=== PATIENT | male | born 1965 | race Caucasian/White ===

== ENCOUNTER → 2022-04-15 | Outpatient (CLI) | payer SELFPAY ==
--- NOTE | 2022-04-15 13:01 | CT_ITS ---
STUDY: CT BILATERAL HIPS T PELVIS REASON FOR EXAM: Male, 57 years old. Templating for right TALIB RADIATION DOSAGE (If Supplied By Facility): CTDIvol = ( 12.28 ) mGy, DLP = ( 829.74 ) mGycm TECHNIQUE: Transaxial imaging of the pelvis and bilateral hips was performed without oral contrast, and without intravenous administration of contrast material utilizing joint replacement protocol including localizing images at the knee . Individualized dose optimization techniques were used for this CT. COMPARISON: X-ray January 24, 2022 FINDINGS: RIGHT HIP There is severe loss of the articular joint space of the right hip joint, with full thickness loss of the hyaline cartilage. There is lateral osteoarthritic spurring of the right acetabular rim. 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 Normal right femoral neck and intertrochanteric region. LEFT HIP There is left hip replacement. Alignment is near-anatomic . OSSEOUS PELVIS Normal bilateral superior and inferior pubic rami. Normal pubic symphysis. Normal bilateral ischial tuberosity. Normal visualized iliac wing, sacroiliac joint, and sacral ala. Normal visualized soft tissue structures of the pelvis. CT/Extremity Lower without Contra IMPRESSION: Degenerative change of the right hip with avascular necrosis and flattening of the articular surface of the femoral head. Electronically Signed: Everett Robles MD at 15:41 EST ,
== END | disposition home or self-care (01) ==
PROVIDERS: PCP Family Medicine Geriatric Medicine; Referring Provider Orthopaedic Surgery; Visit Provider Orthopaedic Surgery
DX: Z96.643 Presence of artificial hip joint, bilateral (principal); M87.051 Idiopathic aseptic necrosis of right femur; M16.11 Unilateral primary osteoarthritis, right hip
CPT/HCPCS: 73700

== ENCOUNTER → 2022-04-19 | Outpatient (CLI) | payer BC, SELFPAY | END | disposition home or self-care (01) | LOC: LAB 16:38 | PROVIDERS: PCP Family Medicine Geriatric Medicine; Visit Provider Orthopaedic Surgery | DX: Z01.818 Encounter for other preprocedural examination (principal) | CPT/HCPCS: 87081 ==

== ENCOUNTER 2022-04-26 05:28 | Day surgery (SDC) | payer BC, SELFPAY ==
--- NOTE | 2022-04-13 15:46 | EKG12_ITS ---
Test Reason : PREOP Blood Pressure : / mmHG Vent. Rate : 088 BPM Atrial Rate : 088 BPM P-R Int : 134 ms QRS Dur : 084 ms QT Int : 360 ms P-R-T Axes : 022 016 041 degrees QTc Int : 435 ms Normal sinus rhythm Normal ECG Confirmed by DARION PEREZ, WAGNER ([id number]), web editor NIKIA KIM ([id number]) on 04/14/2022 11:23:00 AM Referred By: ELLIOTT Confirmed By:WAGNER ORLANDO MD
[2022-04-13 16:07] LABS: Absolute Lymphocyte Count 1.35 X10^3/uL (0.83-4.51); Absolute Neutrophil Count 3.4 X10^3/uL (2.0-7.7); Basophil# 0.04 X10^3/uL; Basophil% 0.7 % (0-1); Eosinophil# 0.09 X10^3/uL; Eosinophils% 1.6 % (0-5); Hemoglobin 14.2 g/dL (13.0-16.5); Lymphocyte # 1.35 X10^3/ul (0.83-4.51); Lymphocyte % 24.7 % (19-41); Mean Corp Hgb Conc 33.8 g/dL (32-36); Mean Corpuscular Hgb 32.8 pg (27.0-32.0); Mean Platelet Vol. 8.9 fl (6.2-12.0); Monocyte# 0.57 X10^3/uL; Monocyte% 10.4 % (0-10); NRBC Flagged by Analyzer 0 % (0-5); Neutrophil % 62.2 % (47-70); Platelet Count 310 K/mm3 (150-450); RBC Distribution Width CV 12.3 % (11.6-14.6); RBC Distribution Width SD 43.8 fl (35.1-43.9); Red Blood Count 4.33 M/mm3 (4.6-6.2); White Blood Count 5.5 K/mm3 (4.4-11.0)
[2022-04-13 16:26] LABS: Magnesium 2.2 mg/dL (1.6-2.6)
[2022-04-13 16:32] LABS: International Normalized Ratio 1.1; Prothrombin Time (Protime)PT. 13.9 SECONDS (11.7-14.9)
[2022-04-13 16:33] LABS: Partial Thromboplast Time 29.4 Seconds (24.1-36.2)
[2022-04-13 17:55] LABS: Hemoglobin A1c 5.9 % (3.8-5.6)
[2022-04-13 18:43] LABS: Anion Gap 5 (5-15); BUN 20 mg/dL (7-18); BUN/Creat Ratio 21.4 RATIO (10-20); Calcium,Total 9.5 mg/dL (8.5-10.1); Chloride 104 mmol/L (98-107); Creatinine, Serum 0.93 mg/dL (0.70-1.30); EST Glomerular Filtration Rate 88 mL/min (>60); Est Glom Filt Rate - Afr Amer 107 mL/min (>60); Glucose 102 mg/dL (74-106); Potassium 3.7 mmol/L (3.5-5.1); Sodium Level 139 mmol/L (136-145)
[2022-04-15 15:53] LABS: Fructosamine 255 umol/L (0-285)
[2022-04-26] VITALS (12 sets, daily range): BP systolic 111–145; BP diastolic 64–93; PULSE 70–88; RESP 14–20; TEMP 36.1–37.1; O2SAT 95–100; BMI 36.9
[2022-04-26] MEDS: Magnesium 1 GM over 15 mins IV (06:05)
[2022-04-26] MEDS: Lactated Ringers 1,000 ML 999 ML IV (06:05)
[2022-04-26] MEDS: Acetaminophen 500 MG Tablet 1000 MG PO ×2 (06:24→14:00)
[2022-04-26] MEDS: Celecoxib 200 MG Capsule 400 MG PO (06:24)
[2022-04-26] MEDS: Gabapentin 600 MG Tablet PO (06:25)
[2022-04-26] MEDS: Scopolamine 1mg/72hr Patch 1 PATCH TD (06:25)
[2022-04-26 06:50] LABS: Bedside Glucose 117 mg/dL (74-106)
--- NOTE | 2022-04-26 07:20 | PCM.HP.BLA ---
History and Physical Date of Admission: 04/26/22 [facility] [id number] [place] [address] OFFICE VISIT Date of Service:? 04/13/22 MR#: [id number] Acct: [id number] Name:KENA CALI Rep #: [id number] : 1965 ? ? Provider: Dr. Brandan Camacho DO Age/Sex:? 57/M ? ? Location: [facility] [place].[facility] Status: Signed Intake Intake Visit Reasons:?right hip Is patient in pain?: Yes Allergies No Known Allergies Allergy (Verified 04/13/22 14:32) Medications coenzyme Q10 75 mg capsule (Ultra CoQ10) 75 mg PO DAILY 01/24/22 [History Confirmed 04/13/22] etodolac 500 mg tablet 500 mg PO BID 01/24/22 [History Confirmed 04/13/22] ginkgo biloba 40 mg tablet 40 mg PO DAILY 01/24/22 [History Confirmed 04/13/22] glucosamine HCl 500 mg tablet 500 mg PO DAILY 01/24/22 [History Confirmed 04/13/22] hydrochlorothiazide 25 mg tablet 25 mg PO DAILY 01/24/22 [History Confirmed 04/13/22] lisinopril 40 mg tablet 40 mg PO DAILY 01/24/22 [History Confirmed 04/13/22] multivitamin 1 tab PO DAILY 01/24/22 [History Confirmed 04/13/22] omega-3 fatty acids-fish oil 300 mg-500 mg capsule (Fish Oil) 1 cap PO DAILY 01/24/22 [History Confirmed 04/13/22] omeprazole 10 mg capsule,delayed release 10 mg PO DAILY 01/24/22 [History Confirmed 04/13/22] acetaminophen 500 mg tablet 500 mg PO BID 04/12/22 [History Confirmed 04/13/22] PFSH Medical History?(Updated 04/13/22 @ 15:[address] Brandan Camacho DO) Alcohol use Arthritis Former smoker Gastric reflux History of edema History of pain when walking HTN (hypertension) Injury of head and neck Leg cramps Loss of hearing Marijuana use Wears glasses Surgical History?(Updated 04/12/22 @ 09:28 by Deonna Ribera) H/O carpal tunnel repair H/O total hip arthroplasty Hx of toe surgery Hx of tooth extraction Family History?(Updated 06/23/20 @ 11:59 by Lisa Charles QUALITY ASSURANCE SUPERVISOR, QUALITY ASSURANCE SUPERVISOR-C) Mother Diabetes HypertensionFather Lewy body dementia Dementia Social History?(Updated 01/24/22 @ 08:43 by Josselin Botello) household members:? spouse Smoking Status:? Former smoker alcohol intake:? current HPI right hip Details: Parts of this documentation were recorded by a scribe, this documentation accurately reflects the service provided and the decisions made by me, Dr. Brandan Camacho, DO 04/12/22 1145. KENA MAO is a 57 year old M here today for his preop appointment for his right hip. Patient states that he continues to have right hip pain and notes that his pain is worsening. Patient has increased pain with weather and ernst changes. He complains of pain into his groin. He has the exact same pain as his other hip was prior to surgery. Patient is taking tylenol for pain and etodolac. Ortho Exam General General: Yes no acute distress Neurologic: Yes alert and Yes oriented x3 Psychologic: Yes reasonable and appropriate Right Hip Skin: Yes CDI, No Ecchymosis, No soft tissue swelling and No Erythema Special Tests: No TTP Greater Troch and No Illiotibial band tenderness HIP: no significant edema. normal pulse.? 15 IR, 40 ER. good foot range of motion and strength Decreased hip range of motion with pain Coding Level of Care Code Off vis,est,level 3 Diagnoses Degenerative joint disease of right hip? M16.11 AVN of femur? M87.059 Assessment and Plan Assessment and Plan (1) Degenerative joint disease of right hip: ?Status:?Acute (2) AVN of femur: ?Status:?Acute Plan Spoke with the patient about the surgery procedure. He will be put on a blood thinner for 3 weeks post op. He will wear compression stockings post op until his swelling decreases. Spoke with him about the hip precaution. Spoke with him about the risks of a foot drop. Explained to the patient needing a CT scan for the makoplasty. Explained we will be doing an appeal as his insurance is not approving his CT scan. His surgery is going to be done same day. He is able to take tylenol prior to surgery but he should not take any ibuprofen within a week of surgery. Spoke with the patient about post op medications. Risks, benefits and alternatives of surgery reviewed including but not limited to bleeding, infection, nerve,foot drop, artery and/or tissue damage, fracture, VTE, leg length discrepancy, dislocation, need for hip precautions, continued pain and expected post-operative course. Follow up for 2 weeks post op or sooner if pain, swelling, numbness or associated symptoms, or concerns develop.? All questions answered. Patient in agreement of plan. 04/13/22 1555 <Electronically signed by Brandan Camacho DO> Date Brandan Camacho DO Cosigner Signature: Date (if applicable) ?I have examined the patient and the H&P has been reviewed. There are no clinical changes since date of exam.
[2022-04-26] MEDS: Cefazolin 2 GM in 0.9% Normal Saline 100 ML IV (07:28)
--- NOTE | 2022-04-26 07:30 | HIP_PTH ---
PATIENT: KENA MAO Jr. LOC: [facility] [place] U#:[id number] AGE/SX: 57/M ROOM: RE04/26/[address]: Dr. Brandan Camacho DO : 1965 BED: DIS: 04/26/2022 SPEC #: [id number] RECD: 04/26/22 13:21 STATUS: QUOC REJohn #: [id number] SEKOU: 04/26/22 07:[address]: Brandan Camacho DEPT: SURGICAL PATHOLOGY RECD BY: Yarelis Post ENTERED: 04/26/22 13:38 SP TYPE: TOTAL HIP OTHR DR: Dr. Rodrigo Alonzo MD Tissues: Hip, NOS Procedures: Decalcification bone/plaque Surgery Specimen Level IV HEADER OPERATION: ERAS, total hip replacement robotic arm assist PRE-OP DIAGNOSIS: Degenerative joint disease of right hip TISSUE SUBMITTED: Bone and soft tissue ? right hip MICROSCOPIC DIAGNOSIS Right hip bone and soft tissue, total hip replacement/resection: Femoral head with mildly degenerative osteoarthritic changes and focal area of avascular necrosis. DEMETRICE:teri 04/29/2022 MICROSCOPIC DESCRIPTION Slides are reviewed. GROSS DESCRIPTION Received is one container labeled with the patient's name and designated bone and soft tissue hip, right. The specimen consists of a amaro femoral head with portion of femoral neck. The femoral head measures 5 x 5 x 4.5 cm and the femoral neck measures 1.5 cm in length. The articular surface displays prominent osteophyte formation and bone erosion. Sections reveal a wedge-shaped yellowish area underneath the articular cartilage measuring 3 x 1 cm. Also present in the specimen container are multiple irregular fragments of bone reamings measuring in aggregate 7 x 7 x 2 cm. [employer] sections are submitted in three cassettes after decalcification as follows: 1 - bone reamings, 2 & 3 - femoral head. / DEMETRICE:teri 04/26/2022 TC:5 CPT: 82126, 43931
[2022-04-26] MEDS: dexAMETHasone 10 MG/ML Vial IV (08:06)
--- NOTE | 2022-04-26 09:59 | RAD_ITS ---
STUDY: X-RAY - PELVIS AND RIGHT HIP REASON FOR EXAM: Male, 57 years old. Postoperative evaluation after total knee arthroplasty. TECHNIQUE: 2 views of the pelvis and hip. COMPARISON: January 24, 2022. FINDINGS: Osteopenia. Stable left total hip arthroplasty in anatomic alignment. New right total hip arthroplasty with expected post surgical changes and soft tissue swelling, minimal soft tissue gas and skin riri. RAD/Hip Min 2 Views (Portable) IMPRESSION: Osteopenia with new uncomplicated right total hip arthroplasty as described. Electronically Signed: Arnulfo Hensley, at 10:39 EST ,
--- NOTE | 2022-04-26 10:05 | PCM.OP.BLANK ---
Operative Report Date of Procedure: 04/26/22 Preoperative diagnosis: Right hip AVN and DJD Postoperative diagnosis: Same Procedure: CT-guided Makoplasty assisted right total hip arthroplasty Implants: Cohagen Accolade II stem size 5, 127 degree neck angle +5 neck length 56 mm Trident II acetabular shell with 40 mm cancellous screw 36 mm ceramic head, 10 degree Trident X3 polyethylene insert. Anesthesia: Spinal EBL: 175 cc Complications: None Condition: Stable to PACU Indication for procedure: This is a 57-year-old male who has had long-standing AVN of the hip who has failed conservative treatment and wished to undergo total hip arthroplasty. He previously underwent left total hip arthroplasty for AVN years ago. we did discuss operative versus nonoperative intervention including risks of bleeding, infection , nerve artery tissue damage, need for further surgery, fracture, leg length discrepancy dislocation blood clot and need for postoperative physical therapy and postoperative expectations. An informed consent was signed. Procedure: Patient was met in the preoperative holding area once again the operative extremity was identified by both patient and physician and was marked. Patient was met by anesthesia . Anesthesia was started. patient was then positioned in the lateral decubitus position on a well-padded pegboard with an axillary roll. All bony prominences were checked and padded. The patient was prepped and draped in the usual sterile fashion. A timeout was called to ensure the proper patient procedure and extremity were being contemplated. Anatomic landmarks were palpated and marked for a standard posterior lateral approach. Prior to this the ASIS was palpated and 3 fingerbreadths proximal to this 3 pins were placed at a 45 degree angle into the iliac crest with good purchase, stab incisions were made with a 15 blade into the skin prior to placement. The Makoplasty array was then secured. A 10 blade scalpel was used to make a posterior incision through the skin and subcutaneous tissue. retractors were used and electrocautery was used to maintain meticulous hemostasis and dissect full-thickness flaps until the gluteal fascia was reached. The gluteal fascia was incised in line with the gluteal fibers. The bursal tissue was then freed from the underside and a Charnley retractor was placed. The femoral trochanteric checkpoint was placed and leg length was assessed using the trochanteric checkpoint and an EKG lead that was placed on the knee prior to prepping the leg .the fat pad was then elevated off of the external rotators with electrocautery and the external rotators were dissected off of the greater trochanter including the piriformis and were tagged with #1 Ethibond for later repair. The joint capsule opened with posterior trapdoor technique. The hip was surgically dislocated. The measurement on the preoperative CT from the top of the lesser trochanter to the femoral neck cut was marked Hohmann was placed around the lesser trochanter. A neck cutting guide was used to tuan the neck with a Bovie and an oscillating saw was used complete the femoral neck cut. The femoral head was then removed and sized. We then turned our attention to the acetabulum. A Bovie was used to make a perforation in the anterior joint capsule and a Lopez retractor was placed this was repeated in the 6 o'clock position and a wide joann was placed there. With a long handled knife the labral and pulvinar tissue were removed. We then registered the acetabulum with the pointing array and confirmed our landmarks. Once the socket was thoroughly prepared and labral tissue and pulvinar was removed we single reamed with the robotic arm. We then used the robotic arm to position the acetabular implant and impacted it into place under robotic guidance. We then proceeded to place a posterior superior screw by drilling first measuring and inserting the screw. We then inserted a trial liner. And turned our attention back to the femur at this point a femoral elevator was used. As well as a pointed wide Hohmann around the lesser trochanter and a Hohmann to help retract the gluteus medius. A box chisel was used to remove excess lateral neck followed by a canal finder and a lateralizing reamer. This was followed by sequential broaches. Attention was made of the version within the canal based on preoperative templating. Once the final broach was seated we then trialed reduced the hip it was determined that a 127 degree neck angle with a +5 neck length was the appropriate size. We then checked stability with shuck testing as well as flexion and internal rotation. then proceeded with hip extension and checked leg lengths at the knees and heels as well as with the trochanteric checkpoint and knee EKG lead. At this point trials were removed. A liner was inserted to the cup. The femoral stem was inserted. We re-trialed and then proceeded to impact the femoral head onto the Leon taper. We then surgically reduce the hip check stability again and leg lengths and were satisfied. Betadine rinse was allowed to sit for 5 minutes while everyone changed their gloves. Thorough irrigation was performed. Followed by closure of the external rotators with #2 FiberWire followed by closure of gluteal fascia with #1 Ethibond. 0 Vicryl fat stitches and 2-0 Vicryl subcutaneous stitches and riri in the skin. [place] were placed in the skin pin sites over the iliac crest and dressed with a Mepilex dressing. The main incision was dressed with a Mepilex ag dressing and an abduction pillow was placed. Patient tolerated the procedure well there was no intraoperative complications all counts were correct and the patient was brought back to the PACU in stable condition
--- NOTE | 2022-04-26 10:07 | DCINST_ITS ---
Discharge Instructions Activity Weight Bearing Status: Weight bearing as tolerated Additional Activity Instructions:: Do not shower 72hrs. Begin daily showering warm water antibacterial soap postop day #3( 72hrs Post-operatively) and then daily. Leave the dressing on for 72 hours postoperatively then may remove prior to first shower and change dressing daily after this until no drainage for 2 consecutive days then may leave open to air. Follow hip precautions that were reviewed in hospital. Wear compression stockings, may remove at night. Start physical therapy as directed in hospital. Follow prescriptions instructions do not take any other pain medication or differ dosing without consulting your physician. Do not take oral NSAIDs until blood thinner has been completed , then may begin the day after completion if needed . Call Dr. Camacho's office with any concerns. Dressing / Incision Call your doctor if you observe: Shortness of breath and Chest pain Follow Up Care Please Follow Up With: Brandan Camacho DO When: 2 weeks Test Results: Test results from this visit will be discussed in further detail at your follow- up appointment, if applicable. Discharge Plan Admission Primary Reason for Your Visit: Right total hip arthroplasty Attending Provider: Brandan Camacho Primary Care Provider: Rodrigo Alonzo Discharge Orders/Prescriptions Prescriptions: New acetaminophen [acetaminophen] 500 mg tablet 1,000 mg PO Q6H Qty: 100 0RF cephalexin [cephalexin] 500 mg capsule 1,000 mg PO Q8 Qty: 4 0RF Rx Instructions: take 2 tabs at 9:00 pm and 2 tabs after 5 am when you wake up Eliquis 2.5 mg tablet 2.5 mg PO BID Qty: 42 0RF oxycodone 5 mg tablet 5 - 10 mg PO Q4H PRN (Reason: pain) 7 Days Qty: 60 0RF Continued hydrochlorothiazide 25 mg tablet 25 mg PO DAILY lisinopril 40 mg tablet 40 mg PO DAILY Ultra CoQ10 75 mg capsule 75 mg PO DAILY ginkgo biloba 40 mg tablet 40 mg PO DAILY Rx Instructions: give with meal/snack glucosamine HCl 500 mg tablet 500 mg PO DAILY Rx Instructions: administer with a meal multivitamin Tablet 1 tab PO DAILY omeprazole 10 mg capsule,delayed release(DR/EC) 10 mg PO DAILY Discontinued etodolac 500 mg tablet 500 mg PO BID Label Comments: TAKE ONE TABLET BY MOUTH TWO TIMES A DAY Fish Oil 300-500 mg capsule 1 cap PO DAILY acetaminophen [Tylenol Ex Str Arthritis Pain] 500 mg Tablet 500 mg PO BID Referrals / Follow Up: Rodrigo Alonzo MD [Primary Care Provider] - Disposition Discharge Orders: Discharge Patient (Routine); Ordered 04/26/22 Ordered By: Dr. Brandan Camacho
[2022-04-26] MEDS: Lactated Ringers 1,000 ML 125 ML IV (11:00)
[2022-04-26] MEDS: Tamsulosin HCl 0.4 MG Capsule PO ×2 (11:14→14:48)
[2022-04-26] MEDS: Cefazolin 1 GM/50 ML BAG IV (12:47)
== END 2022-04-26 16:04 | disposition home or self-care (01) ==
LOC: SDC 05:28 → AC 05:29
PROVIDERS: Anesthesiology; PCP Family Medicine Geriatric Medicine; Referring Provider Orthopaedic Surgery; Visit Provider Orthopaedic Surgery
PROC: 8E0Y0CZ Robotic Assisted Procedure of Lower Extremity, Open Approach (ICD-10-PCS; CPT 27130; principal; 2022-04-26 07:00)
DX: M16.11 Unilateral primary osteoarthritis, right hip (principal); Z87.891 Personal history of nicotine dependence; K21.9 Gastro-esophageal reflux disease without esophagitis; I10 Essential (primary) hypertension; Z96.649 Presence of unspecified artificial hip joint
CPT/HCPCS: 27130; 01214; 73502; 80048; 82962; 82985; 83036; 83735; 85025; 85610; 85730; 86850; 86900; 86901; 88305; 88311; 93005; 97162; C1776; J7120; J2405; J3475